=== PATIENT | female | born 1955 | race African-American/Black ===

== ENCOUNTER 2019-01-09 11:02 | Emergency (ER) | payer MEDICARE, OTHER ==
[~2019-01-09] VITALS: Ht 182.9 cm; Wt 200.5 kg
[2019-01-09 13:24] VITALS: BP 158/64
== END 2019-01-09 13:46 | disposition home or self-care (01) ==
LOC: ED 13:33
DX: L03.115 Cellulitis of right lower limb (principal); R06.00 Dyspnea, unspecified; J45.909 Unspecified asthma, uncomplicated; I10 Essential (primary) hypertension
CPT/HCPCS: 36415; 71045; 80048; 85025; 93005; 99284